=== PATIENT | female | born 1965 | race Hispanic/Latino ===

== ENCOUNTER 2022-11-03 09:00 | Day surgery (SDC) | payer OTHER ==
[~2022-11-03] VITALS: Ht 147.3 cm; Wt 72.6 kg
[~2022-11-03 09:00] MED LIST: ASPIRIN 81 LOW81 MG PO; B121000 MCG PO; CYCLOBENZAPRINE10 MG PO; DICLOFENAC75 MG PO; GAS-X ULTRA ST180 MG; GLIPIZIDE10 M2 PO; LEVEMIR100 UNIT; LIPITOR20 M1 PO; LORTAB 5/3255 MG PO; LOSARTAN POTASS50 MG PO; METFORMIN500 MG PO; NAPROSYN500 MG PO; NOVOLIN R1000 UNITS IV; OZEMPIC2 MG SC; ROBAXIN PO; SPIRIVA HANDIH18 MCG; TORADOL PO; TRESIBA100 UNIT/M SC
[2022-11-03 11:09] VITALS: BP 127/80
== END 2022-11-03 11:37 | disposition home or self-care (01) | DRG 379 ==
LOC: ENDO 09:00
PROVIDERS: ATTEND Surgery
PROC: 0DBH8ZX Excision of Cecum, Via Natural or Artificial Opening Endoscopic, Diagnostic (ICD-10-PCS; principal; 2022-11-03)
DX: K57.31 Diverticulosis of large intestine without perforation or abscess with bleeding (principal); D12.0 Benign neoplasm of cecum; K64.8 Other hemorrhoids; I10 Essential (primary) hypertension; E11.9 Type 2 diabetes mellitus without complications; Z79.84 Long term (current) use of oral hypoglycemic drugs; Z79.4 Long term (current) use of insulin; Z80.0 Family history of malignant neoplasm of digestive organs